=== PATIENT | female | born 1945 | race American Indian/Alaskan Native ===

== ENCOUNTER 2016-09-01 15:25 | Emergency (ER) | payer MEDICARE ==
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
[2016-09-01] MEDS ORDERED: PERCOCET 5/325 ONE (18:09)
[2016-09-01 18:10] VITALS: BP 162/94
[2016-09-01] MEDS ORDERED: PERCOCET 5/325 PO ONE (18:12)
== END 2016-09-01 18:19 | disposition home or self-care (01) ==
LOC: ED 15:25
DX: R07.81 Pleurodynia (principal); Z87.81 Personal history of (healed) traumatic fracture; I10 Essential (primary) hypertension; E78.00 Pure hypercholesterolemia, unspecified
CPT/HCPCS: 99283